=== PATIENT | female | born 1955 | race African-American/Black ===

== ENCOUNTER 2018-03-30 08:48 | Inpatient (IN) | payer MEDICARE, MEDICAID ==
[~2018-03-30] VITALS: Ht 162.6 cm; Wt 50.7 kg
[~2018-03-30 08:48] MED LIST: ALBUAER3 IN; AMLO5TAB2 PO; ASCO500T11 PO; ASPI81CH43 PO; BACL10TA PO; BUDE160A3 INH; CALC-355 PO; CETI10TA93 PO; CHOL50006 PO; COLCPOW2 PO; FLAX100024 PO; IBUP800T24 PO; LEVE500T22 PO; LEVO25TA49 PO; LIDO5DIS21 TOP; LORA-654 PO; MULT1TAB23 PO; NITR0.4D10 TD; OLAN10TA29 PO; OMEG100078 PO; POTA8TAB2 PO; PROP60CA34 PO; SUCR1SUS10 PO; VITA80009 PO; [UNRECOGNIZED DRUG - CODE] VI
[2018-03-30 09:30] LABS: Basophils # (auto) 0.1 uL; Basophils % (auto) 0.7 % (0.0-2.0); Eosinophils # (auto) 0 uL; Eosinophils % (auto) 0.2 % (0.0-7.0); Hematocrit 44.1 % (36.0-46.0); Hemoglobin 14.4 g/dL (12.2-16.2); Lymphocytes % (auto) 22.6 % (10.0-50.0); Mean Corpuscular Hemoglobin 30.7 pg (28.0-32.0); Mean Corpuscular Hgb Conc. 32.7 g/dL (32.0-36.0); Mean Corpuscular Volume 93.8 fL (80.0-100.0); Monocytes # (auto) 0.5 uL; Monocytes % (auto) 5.4 % (0.0-12.0); Neutrophils # (auto) 6.4 uL; Neutrophils % (auto) 71.1 % (37.0-80.0); Platelet Count (auto) 244 10^3/uL (140-450); Red Blood Cells 4.71 10^6/uL (4.0-5.20)
[2018-03-30 09:52] LABS: Albumin 3.6 g/dL (3.4-5.0); BUN/Creatinine Ratio 13.2; Bilirubin, Total 0.4 mg/dL (0.2-1.0); Calcium 8.7 mg/dL (8.5-10.1); Potassium 3.6 mmol/L (3.5-5.1); Total Protein 7.7 g/dL (6.4-8.2)
[2018-03-30] MEDS ORDERED: SODIUM CHLORIDE 0.9% 500 ML IVB ONE (11:49)
[2018-03-30] MEDS ORDERED: PANTOPRAZOLE 40 MG/10 ML VIAL IV STA (11:49)
[2018-03-30] MEDS ORDERED: PROMETHAZINE HCL 25 MG/ML 1ML IV ONE (12:00)
[2018-03-30] MEDS ORDERED: MORPHINE SULFATE 4 MG/ML SYR/VIAL IV ONE (12:00)
[2018-03-30 12:48] LABS: Lipase 201 U/L (73-393); Magnesium 2.1 mg/dL (1.6-2.6)
[2018-03-30] MEDS ORDERED: LORazepam 2MG/ML-1ML VIAL IV PRN (14:45)
[2018-03-30 14:57] LABS: Urine Bacteria NONE SEEN /hpf (None Seen); Urine Blood Negative /uL (Negative); Urine Specific Gravity 1.009 (1.001-1.035); Urine WBC 4 /hpf (0 - 5)
[2018-03-30] MEDS ORDERED: DEXTROSE (50%) 50ML SYRG IV PRN (15:00)
[2018-03-30] MEDS: SODIUM CHLORIDE 0.9% 1,000 ML IV SCH ×2 (15:03→23:23)
[2018-03-30] MEDS ORDERED: DOCUSATE SOD 100 MG CAP PO PRN (15:15)
[2018-03-30] MEDS ORDERED: ACETAMINOPHEN 325 MG TAB PO PRN (15:15)
[2018-03-30] MEDS ORDERED: ONDANSETRON HCL 4 MG/2 ML VIAL IV PRN (15:15)
[2018-03-30] MEDS: metroNIDAZOLE 500MG/100ML 100 ML IV SCH ×2 (15:21→21:58)
[2018-03-30] MEDS ORDERED: LEVOFLOXACIN 500MG 100 ML IV ONE (16:30)
[2018-03-30] MEDS: HYDROcodone-ACET 5/325MG TAB PO PRN ×2 (17:01→21:59)
[2018-03-30] MEDS: MULTIPLE VITAMIN TAB PO SCH (17:01)
[2018-03-30] MEDS: MORPHINE SULF INJ 2 MG/ML SYRINGE 1ML IV PRN ×2 (18:00→23:20)
[2018-03-30] MEDS: InsuLIN REG 1unit/0.01ml Soln (100units/ml) SC SCH ×2 (18:00→22:00)
[2018-03-30] MEDS: ACCU-CHEK COMFORT CURVE STRIP VI SCH ×2 (18:00→22:12)
[2018-03-30] MEDS: FAMOTIDINE 20 MG TAB PO SCH (21:58)
[2018-03-30] MEDS: LEVETIRACETAM 500 MG TAB PO SCH (21:59)
[2018-03-30] MEDS: OLANZapine 5 MG TAB PO SCH (21:59)
[2018-03-30 22:01] VITALS: BP 141/81
[2018-03-30] MEDS: PROPRANOLOL HCL 20 MG TAB PO SCH (22:09)
[2018-03-30] MEDS: BACLOFEN 10 MG TAB PO PRN (22:11)
[2018-03-31] MEDS: LORazepam 0.5 MG TAB PO PRN ×2 (00:22→11:40)
[2018-03-31] MEDS: TEMAZEPAM 15 MG CAP PO PRN ×2 (00:22→22:47)
[2018-03-31 04:38] VITALS: BP 111/63
[2018-03-31] MEDS: metroNIDAZOLE 500MG/100ML 100 ML IV SCH ×3 (06:33→21:45)
[2018-03-31] MEDS: LEVOTHYROXINE SODIUM 25 MCG TAB PO SCH (06:33)
[2018-03-31] MEDS: ACCU-CHEK COMFORT CURVE STRIP VI SCH ×4 (06:33→21:50)
[2018-03-31] MEDS: InsuLIN REG 1unit/0.01ml Soln (100units/ml) SC SCH ×4 (07:00→21:50)
[2018-03-31] MEDS: SODIUM CHLORIDE 0.9% 1,000 ML IV SCH (07:43)
[2018-03-31 08:47] LABS: Basophils # (auto) 0.1 uL; Basophils % (auto) 0.8 % (0.0-2.0); Eosinophils # (auto) 0 uL; Eosinophils % (auto) 0.4 % (0.0-7.0); Hematocrit 40.2 % (36.0-46.0); Hemoglobin 13.3 g/dL (12.2-16.2); Lymphocytes # (auto) 3.5 uL; Lymphocytes % (auto) 49.9 % (10.0-50.0); Mean Corpuscular Hemoglobin 31.1 pg (28.0-32.0); Mean Corpuscular Hgb Conc. 33.2 g/dL (32.0-36.0); Mean Corpuscular Volume 93.4 fL (80.0-100.0); Monocytes # (auto) 0.7 uL; Monocytes % (auto) 9.7 % (0.0-12.0); Neutrophils # (auto) 2.7 uL; Neutrophils % (auto) 39.2 % (37.0-80.0); Nucleated Red Blood Cells % 0.2 %; Platelet Count (auto) 197 10^3/uL (140-450); Red Cell Distribution Width 12.9 % (11.8-14.3); White Blood Cell 6.9 10^3/uL (4.4-10.8)
[2018-03-31] MEDS: LEVOFLOXACIN 500MG 100 ML IV SCH (08:55)
[2018-03-31] MEDS: COLCHICINE 0.6 MG TAB PO SCH (08:56)
[2018-03-31] MEDS: LORATADINE 10 MG TAB PO SCH (08:57)
[2018-03-31] MEDS: FAMOTIDINE 20 MG TAB PO SCH (08:57)
[2018-03-31] MEDS: MULTIPLE VITAMIN TAB PO SCH (08:57)
[2018-03-31] MEDS: amLODIPine BESYLATE 5 MG TAB PO SCH (08:57)
[2018-03-31 09:00] VITALS: BP 147/76
[2018-03-31] MEDS: MORPHINE SULF INJ 2 MG/ML SYRINGE 1ML IV PRN ×3 (09:03→19:55)
[2018-03-31] MEDS: PROPRANOLOL HCL 20 MG TAB PO SCH ×2 (09:10→21:45)
[2018-03-31 09:17] LABS: Albumin 3.1 g/dL (3.4-5.0); BUN/Creatinine Ratio 10.6; Bilirubin, Total 0.4 mg/dL (0.2-1.0); Calcium 8.2 mg/dL (8.5-10.1); Potassium 3.3 mmol/L (3.5-5.1); Total Protein 6.5 g/dL (6.4-8.2)
[2018-03-31] MEDS ORDERED: FLAXSEED OIL 1000 MG PO SCH (10:00)
[2018-03-31] MEDS ORDERED: ASCORBIC ACID 500 MG TAB PO SCH (10:00)
[2018-03-31] MEDS ORDERED: VITAMIN A PO SCH (10:00)
[2018-03-31] MEDS ORDERED: PANTOPRAZOLE 40 MG/10 ML VIAL IV ONE (11:45)
[2018-03-31] MEDS: SOD CHL 0.45% WITH 20MEQ KCL 1,000 ML IV SCH (12:26)
[2018-03-31 13:00] VITALS: BP 140/76
[2018-03-31] MEDS: LACTULOSE 20Gm/30ML SOLN PO PRN ×2 (15:25→21:48)
[2018-03-31] MEDS: PROMETHAZINE HCL 25 MG/ML 1ML IV PRN ×2 (15:25→21:48)
[2018-03-31] MEDS: BACLOFEN 10 MG TAB PO PRN ×2 (15:25→22:48)
[2018-03-31 15:41] LABS: INR 1.01 (0.9-1.15); Prothrombin Time 10.8 sec (9.27-12.13)
[2018-03-31 17:46] VITALS: BP 154/87
[2018-03-31 20:05] VITALS: BP 161/85
[2018-03-31] MEDS: LEVETIRACETAM 500 MG TAB PO SCH (21:46)
[2018-03-31] MEDS: OLANZapine 5 MG TAB PO SCH (21:47)
[2018-03-31 22:00] VITALS: BP 142/81
[2018-03-31] MEDS ORDERED: PANTOPRAZOLE 40 MG/10 ML VIAL IV SCH (22:00)
[2018-04-01] MEDS: SOD CHL 0.45% WITH 20MEQ KCL 1,000 ML IV SCH ×2 (02:00→14:25)
[2018-04-01] MEDS: MORPHINE SULF INJ 2 MG/ML SYRINGE 1ML IV PRN ×4 (02:00→20:50)
[2018-04-01 05:34] VITALS: BP 143/77
[2018-04-01] MEDS: metroNIDAZOLE 500MG/100ML 100 ML IV SCH ×3 (06:00→22:42)
[2018-04-01 06:49] LABS: INR 1.04 (0.9-1.15); Partial Thromboplastin Time 24.9 sec (23.78-33.04); Prothrombin Time 11.1 sec (9.27-12.13)
[2018-04-01] MEDS: LEVOTHYROXINE SODIUM 25 MCG TAB PO SCH (06:58)
[2018-04-01] MEDS: InsuLIN REG 1unit/0.01ml Soln (100units/ml) SC SCH ×4 (07:00→22:00)
[2018-04-01 07:04] LABS: BUN/Creatinine Ratio 5.5; Calcium 8.1 mg/dL (8.5-10.1)
[2018-04-01] MEDS: ACCU-CHEK COMFORT CURVE STRIP VI SCH ×4 (07:09→22:44)
[2018-04-01 08:00] VITALS: BP 134/79
[2018-04-01] MEDS ORDERED: POTASSIUM CHL 20MEQ/100ML 100 ML IV ONE (08:15)
[2018-04-01 08:44] LABS: Basophils # (auto) 0 uL; Basophils % (auto) 0.6 % (0.0-2.0); Eosinophils # (auto) 0 uL; Eosinophils % (auto) 0.3 % (0.0-7.0); Hematocrit 39.2 % (36.0-46.0); Hemoglobin 13.1 g/dL (12.2-16.2); Lymphocytes # (auto) 3.5 uL; Lymphocytes % (auto) 47.7 % (10.0-50.0); Mean Corpuscular Hemoglobin 30.9 pg (28.0-32.0); Mean Corpuscular Hgb Conc. 33.3 g/dL (32.0-36.0); Mean Corpuscular Volume 92.7 fL (80.0-100.0); Monocytes # (auto) 0.7 uL; Monocytes % (auto) 9.9 % (0.0-12.0); Neutrophils % (auto) 41.5 % (37.0-80.0); Nucleated Red Blood Cells % 0.1 %; Platelet Count (auto) 196 10^3/uL (140-450); Red Blood Cells 4.23 10^6/uL (4.0-5.20); Red Cell Distribution Width 12.9 % (11.8-14.3); White Blood Cell 7.3 10^3/uL (4.4-10.8)
[2018-04-01] MEDS: LEVOFLOXACIN 500MG 100 ML IV SCH (10:00)
[2018-04-01] MEDS ORDERED: PANTOPRAZOLE 40 MG/10 ML VIAL IV SCH (10:00)
[2018-04-01] MEDS ORDERED: diphenhdrAMINE HCL 50 MG/1 ML VL ONE (11:01)
[2018-04-01] MEDS ORDERED: NALOXONE HCL 0.4 MG/ML VIAL ONE (11:01)
[2018-04-01] MEDS ORDERED: FLUMAZENIL 0.1 MG/ML INJ 10ML MDV IV ONE (11:01)
[2018-04-01] MEDS ORDERED: LIDOCAINE VISCOUS 2% 15ML UD ONE (11:01)
[2018-04-01] MEDS ORDERED: SODIUM CHLORIDE LOCK 10 ML ONE (11:01)
[2018-04-01] MEDS: fentaNYL CITRATE 100 MCG/2 ML VL ONE ×2 (11:28→11:31)
[2018-04-01] MEDS: MIDAZOLAM HCL 5 MG/ML-1ML VIAL ONE ×2 (11:28→11:31)
[2018-04-01] MEDS: PANTOPRAZOLE 40 MG TAB PO SCH ×2 (12:56→22:44)
[2018-04-01] MEDS: COLCHICINE 0.6 MG TAB PO SCH (12:56)
[2018-04-01] MEDS: LORATADINE 10 MG TAB PO SCH (12:56)
[2018-04-01] MEDS: PROPRANOLOL HCL 20 MG TAB PO SCH ×2 (12:57→22:00)
[2018-04-01] MEDS: amLODIPine BESYLATE 5 MG TAB PO SCH (12:58)
[2018-04-01] MEDS: MULTIPLE VITAMIN TAB PO SCH (12:58)
[2018-04-01 13:00] VITALS: BP 166/91
[2018-04-01] MEDS: FISH OIL PO SCH (13:30)
[2018-04-01 17:00] VITALS: BP 132/69
[2018-04-01] MEDS: HYDROcodone-ACET 5/325MG TAB PO PRN ×2 (17:13→22:30)
[2018-04-01 21:36] VITALS: BP 144/77
[2018-04-01] MEDS: OLANZapine 5 MG TAB PO SCH (22:00)
[2018-04-01] MEDS: LEVETIRACETAM 500 MG TAB PO SCH (22:43)
[2018-04-01] MEDS: LORazepam 0.5 MG TAB PO PRN (23:03)
[2018-04-01] MEDS: TEMAZEPAM 15 MG CAP PO PRN (23:03)
[2018-04-02] MEDS: MORPHINE SULF INJ 2 MG/ML SYRINGE 1ML IV PRN ×2 (00:55→04:55)
[2018-04-02] MEDS: ALBUTEROL SULF 2.5 MG/0.5ML(0.5%) NEB SOLN NEB PRN ×2 (01:47→09:58)
[2018-04-02 01:54] VITALS: BP 144/77
[2018-04-02] MEDS: HYDROcodone-ACET 5/325MG TAB PO PRN ×2 (02:14→06:09)
[2018-04-02] MEDS: SOD CHL 0.45% WITH 20MEQ KCL 1,000 ML IV SCH (04:32)
[2018-04-02 04:47] VITALS: BP 115/67
[2018-04-02] MEDS: LEVOTHYROXINE SODIUM 25 MCG TAB PO SCH (06:07)
[2018-04-02] MEDS: InsuLIN REG 1unit/0.01ml Soln (100units/ml) SC SCH ×2 (06:07→11:30)
[2018-04-02] MEDS: metroNIDAZOLE 500MG/100ML 100 ML IV SCH (06:07)
[2018-04-02] MEDS: ACCU-CHEK COMFORT CURVE STRIP VI SCH ×2 (06:08→11:50)
[2018-04-02 08:00] VITALS: BP 122/74
[2018-04-02 09:00] VITALS: BP 122/74
[2018-04-02] MEDS: PANTOPRAZOLE 40 MG TAB PO SCH (09:21)
[2018-04-02] MEDS: amLODIPine BESYLATE 5 MG TAB PO SCH (09:21)
[2018-04-02] MEDS: MULTIPLE VITAMIN TAB PO SCH (09:22)
[2018-04-02] MEDS: PROPRANOLOL HCL 20 MG TAB PO SCH (09:23)
[2018-04-02] MEDS: COLCHICINE 0.6 MG TAB PO SCH (09:24)
[2018-04-02] MEDS: LORATADINE 10 MG TAB PO SCH (09:24)
[2018-04-02] MEDS: LEVOFLOXACIN 500MG 100 ML IV SCH (09:24)
[2018-04-02] MEDS: FISH OIL PO SCH (09:24)
[2018-04-02 09:27] LABS: Basophils # (auto) 0.1 uL; Basophils % (auto) 1.3 % (0.0-2.0); Eosinophils # (auto) 0.1 uL; Eosinophils % (auto) 2.6 % (0.0-7.0); Hematocrit 43.1 % (36.0-46.0); Lymphocytes # (auto) 2.7 uL; Lymphocytes % (auto) 48.5 % (10.0-50.0); Mean Corpuscular Hemoglobin 30.2 pg (28.0-32.0); Mean Corpuscular Hgb Conc. 32.5 g/dL (32.0-36.0); Mean Corpuscular Volume 93.1 fL (80.0-100.0); Monocytes # (auto) 0.5 uL; Monocytes % (auto) 9.6 % (0.0-12.0); Neutrophils # (auto) 2.1 uL; Nucleated Red Blood Cells % 0.1 %; Platelet Count (auto) 218 10^3/uL (140-450); Red Blood Cells 4.63 10^6/uL (4.0-5.20); Red Cell Distribution Width 12.8 % (11.8-14.3); White Blood Cell 5.5 10^3/uL (4.4-10.8)
[2018-04-02 09:40] LABS: Calcium 8.1 mg/dL (8.5-10.1); Potassium 3.5 mmol/L (3.5-5.1)
== END 2018-04-02 12:04 | disposition home or self-care (01) | DRG 392 ==
LOC: EDBD 08:48 → ER 08:48 → TELE 08:49 → TELE-CENTR 18:00 → CENTRAL 03-31 05:01
PROVIDERS: ADMIT Internal Medicine; ATTEND Internal Medicine
PROC: 0DB68ZX Excision of Stomach, Via Natural or Artificial Opening Endoscopic, Diagnostic (ICD-10-PCS; principal; 2018-04-01 11:24)
DX: K29.00 Acute gastritis without bleeding (principal); I50.42 Chronic combined systolic (congestive) and diastolic (congestive) heart failure; I13.0 Hypertensive heart and chronic kidney disease with heart failure and stage 1 through stage 4 chronic kidney disease, or unspecified chronic kidney disease; N18.2 Chronic kidney disease, stage 2 (mild); K52.9 Noninfective gastroenteritis and colitis, unspecified; E86.0 Dehydration; E11.65 Type 2 diabetes mellitus with hyperglycemia; Z88.0 Allergy status to penicillin; Z88.8 Allergy status to other drugs, medicaments and biological substances; E06.3 Autoimmune thyroiditis; E11.21 Type 2 diabetes mellitus with diabetic nephropathy; E11.22 Type 2 diabetes mellitus with diabetic chronic kidney disease; E11.40 Type 2 diabetes mellitus with diabetic neuropathy, unspecified; F32.9 Major depressive disorder, single episode, unspecified; F41.9 Anxiety disorder, unspecified; G40.909 Epilepsy, unspecified, not intractable, without status epilepticus; G89.4 Chronic pain syndrome; I25.10 Atherosclerotic heart disease of native coronary artery without angina pectoris; K44.9 Diaphragmatic hernia without obstruction or gangrene; K57.30 Diverticulosis of large intestine without perforation or abscess without bleeding; K76.89 Other specified diseases of liver; K90.0 Celiac disease; M06.9 Rheumatoid arthritis, unspecified; M32.9 Systemic lupus erythematosus, unspecified; M35.00 Sjogren syndrome, unspecified; M79.7 Fibromyalgia; Z82.49 Family history of ischemic heart disease and other diseases of the circulatory system; Z83.3 Family history of diabetes mellitus; Z86.73 Personal history of transient ischemic attack (TIA), and cerebral infarction without residual deficits; Z90.710 Acquired absence of both cervix and uterus; Z98.51 Tubal ligation status; Z79.82 Long term (current) use of aspirin; Z79.899 Other long term (current) drug therapy
CPT/HCPCS: 36415; 43239; 71045; 72192; 74176; 80048; 80053; 81001; 82962; 83036; 83690; 83735; 84443; 84484; 85025; 85610; 85730; 86850; 86900; 86901; 87081; 87086; 93005; 94640; 96361; 96374; 96375; A6257; C9113; J1956; J2250; J2405; J3480; J3490

== ENCOUNTER 2018-04-03 14:11 | Emergency (ER) | payer MEDICARE, MEDICAID ==
[~2018-04-03] VITALS: Ht 162.6 cm; Wt 65.8 kg
[2018-04-03] MEDS ORDERED: SODIUM CHLORIDE 0.9% 1,000 ML IV ONE ×2 (14:27)
[2018-04-03] MEDS ORDERED: PANTOPRAZOLE 40 MG/10 ML VIAL IV ONE (14:30)
[2018-04-03] MEDS ORDERED: PROMETHAZINE HCL 25 MG/ML 1ML IV ONE (14:30)
[2018-04-03 15:40] LABS: Basophils # (auto) 0.1 uL; Eosinophils # (auto) 0 uL; Eosinophils % (auto) 0.1 % (0.0-7.0); Hematocrit 43.6 % (36.0-46.0); Hemoglobin 14.8 g/dL (12.2-16.2); Lymphocytes # (auto) 1.6 uL; Lymphocytes % (auto) 20.6 % (10.0-50.0); Mean Corpuscular Hemoglobin 31.3 pg (28.0-32.0); Mean Corpuscular Volume 92.2 fL (80.0-100.0); Monocytes # (auto) 0.4 uL; Neutrophils # (auto) 5.8 uL; Neutrophils % (auto) 73.3 % (37.0-80.0); Platelet Count (auto) 201 10^3/uL (140-450); Red Blood Cells 4.73 10^6/uL (4.0-5.20); Red Cell Distribution Width 12.9 % (11.8-14.3); White Blood Cell 7.9 10^3/uL (4.4-10.8)
[2018-04-03 16:00] LABS: Albumin 3.6 g/dL (3.4-5.0); BUN/Creatinine Ratio 18.4; Bilirubin, Total 0.3 mg/dL (0.2-1.0); Calcium 8.7 mg/dL (8.5-10.1); Potassium 4.9 mmol/L (3.5-5.1); Total Protein 8.1 g/dL (6.4-8.2)
[2018-04-03] MEDS ORDERED: BACLOFEN 10 MG TAB PO ONE (19:15)
[2018-04-03 21:27] VITALS: BP 176/63
[2018-04-03] MEDS ORDERED: ONDANSETRON HCL 4 MG/2 ML VIAL IV ONE (21:45)
[2018-04-03] MEDS ORDERED: KETOROLAC TROMETH 30 MG/ML 1ML VIAL IV ONE (21:45)
== END 2018-04-03 17:11 | disposition home or self-care (01) ==
LOC: ER 14:11 → EDBD 14:11 → ER 17:11
DX: R53.1 Weakness (principal); M32.9 Systemic lupus erythematosus, unspecified; R11.2 Nausea with vomiting, unspecified; I11.0 Hypertensive heart disease with heart failure; I50.9 Heart failure, unspecified; E11.9 Type 2 diabetes mellitus without complications; E07.9 Disorder of thyroid, unspecified; Z90.710 Acquired absence of both cervix and uterus; Z88.0 Allergy status to penicillin; Z88.8 Allergy status to other drugs, medicaments and biological substances; Z88.1 Allergy status to other antibiotic agents; Z91.040 Latex allergy status; Z86.73 Personal history of transient ischemic attack (TIA), and cerebral infarction without residual deficits
CPT/HCPCS: 36415; 80053; 82962; 85025; 93005; 96361; 96374; 96375; 99285; C9113; J1885; J2405; J2550; J7030

== ENCOUNTER 2018-04-30 15:12 | Emergency (ER) | payer MEDICARE, MEDICAID ==
[~2018-04-30] VITALS: Ht 167.6 cm; Wt 68.0 kg
[~2018-04-30 15:12] MED LIST changes: +AMLO5TAB13 PO; -AMLO5TAB2 PO
[2018-04-30 16:03] LABS: Basophils # (auto) 0.1 uL; Eosinophils # (auto) 0 uL; Eosinophils % (auto) 0.7 % (0.0-7.0); Hematocrit 39.7 % (36.0-46.0); Hemoglobin 13.1 g/dL (12.2-16.2); Lymphocytes # (auto) 2.8 uL; Lymphocytes % (auto) 45.7 % (10.0-50.0); Mean Corpuscular Hemoglobin 31.1 pg (28.0-32.0); Mean Corpuscular Volume 94.2 fL (80.0-100.0); Monocytes # (auto) 0.5 uL; Monocytes % (auto) 8.7 % (0.0-12.0); Neutrophils # (auto) 2.6 uL; Neutrophils % (auto) 43.9 % (37.0-80.0); Nucleated Red Blood Cells % 0.2 %; Platelet Count (auto) 193 10^3/uL (140-450); Red Blood Cells 4.21 10^6/uL (4.0-5.20); Red Cell Distribution Width 12.9 % (11.8-14.3)
[2018-04-30 16:19] LABS: Alanine Aminotransferase 19 U/L (13-56); Anion Gap 10 (5-15); Aspartate Aminotransferase 15 U/L (15-37); BUN/Creatinine Ratio 10.1; Blood Urea Nitrogen 10 mg/dL (7-18); Carbon Dioxide 28 mmol/L (21-32); Chloride 106 mmol/L (98-107); GFR African American 73 mL/min; GFR Non-African American 60 mL/min; Glucose 85 mg/dL (74-106); Potassium 3.5 mmol/L (3.5-5.1); Sodium 144 mmol/L (136-145)
[2018-04-30 16:20] LABS: Albumin 3.5 g/dL (3.4-5.0); Calcium 8.5 mg/dL (8.5-10.1)
[2018-04-30 16:24] LABS: Alkaline Phosphatase 106 U/L (45-117); Bilirubin, Total 0.3 mg/dL (0.2-1.0); Total Protein 7.5 g/dL (6.4-8.2)
[2018-04-30] MEDS ORDERED: D5W/SOD CHL 0.45% 1,000 ML IV ONE (21:15)
[2018-04-30 21:30] LABS: Urine Bacteria FEW /hpf (None Seen); Urine Blood Negative /uL (Negative); Urine Specific Gravity 1.012 (1.001-1.035); Urine WBC 1 /hpf (0 - 5)
[2018-04-30] MEDS ORDERED: IOHEXOL 300 MG/ML 100ML BOTTLE IJ ONE (21:33)
[2018-05-01 07:03] VITALS: BP 198/98
== END 2018-05-01 07:44 | disposition home or self-care (01) ==
LOC: ER 15:12 → EDBD 15:12 → ER 05-01 07:44
DX: R53.1 Weakness (principal); E11.649 Type 2 diabetes mellitus with hypoglycemia without coma; E07.9 Disorder of thyroid, unspecified; I11.0 Hypertensive heart disease with heart failure; I50.9 Heart failure, unspecified; Z88.0 Allergy status to penicillin; Z88.1 Allergy status to other antibiotic agents; Z88.2 Allergy status to sulfonamides; Z88.8 Allergy status to other drugs, medicaments and biological substances; Z79.82 Long term (current) use of aspirin; Z79.899 Other long term (current) drug therapy; Z86.73 Personal history of transient ischemic attack (TIA), and cerebral infarction without residual deficits; Z90.710 Acquired absence of both cervix and uterus
CPT/HCPCS: 36415; 74176; 80053; 81001; 84484; 85025; 93005; 96365; 96366

== ENCOUNTER 2018-05-07 20:52 | Emergency (ER) | payer MEDICARE, MEDICAID ==
[~2018-05-07] VITALS: Ht 167.6 cm; Wt 63.5 kg
[2018-05-08] MEDS ORDERED: LORazepam 0.5 MG TAB PO ONE (07:30)
[2018-05-08] MEDS ORDERED: LORazepam 2MG/ML-1ML VIAL ONE (08:00)
[2018-05-08] MEDS ORDERED: LORazepam 2MG/ML-1ML VIAL IM ONE (08:15)
[2018-05-08 08:35] VITALS: BP 155/65
== END 2018-05-08 09:19 | disposition home or self-care (01) ==
LOC: EDBD 20:52 → ER 21:04
DX: F20.9 Schizophrenia, unspecified (principal); F41.9 Anxiety disorder, unspecified; I11.0 Hypertensive heart disease with heart failure; I50.9 Heart failure, unspecified; E11.9 Type 2 diabetes mellitus without complications
CPT/HCPCS: 96372; 99284; J2060

== ENCOUNTER 2021-06-07 13:20 | Emergency (ER) | payer MEDICARE, MEDICAID ==
[~2021-06-07] VITALS: Ht 167.6 cm; Wt 74.8 kg
[~2021-06-07 13:20] MED LIST changes: +AMLO-489 PO; -AMLO5TAB13 PO; -IBUP800T24 PO; +IBUP800T27 PO; -LEVE500T22 PO; +LEVE500T32 PO; -LORA-654 PO; +LORA0.5T20 PO; -NITR0.4D10 TD; +NITR0.4D5 TD; -OLAN10TA29 PO; +OLAN1TAB19 PO
[2021-06-07] MEDS ORDERED: SODIUM CHLORIDE 0.9% 1,000 ML IV ONE (14:45)
[2021-06-07] MEDS ORDERED: ACETAMINOPHEN 325 MG TAB PO ONE (14:45)
[2021-06-07] MEDS ORDERED: KETOROLAC TROMETH 30 MG/ML 1ML VIAL IV ONE ×2 (14:45→20:00)
[2021-06-07 15:46] LABS: Basophils # (auto) 0 10 ^3/uL (0-0.2); Basophils % (auto) 0.9 % (0.0-2.0); Eosinophils # (auto) 0.1 10 ^3/uL (0-0.8); Eosinophils % (auto) 1.4 % (0.0-7.0); Hematocrit 41.8 % (36.0-46.0); Hemoglobin 13.9 g/dL (12.2-16.2); Lymphocytes # (auto) 2.1 10 ^3/uL (0.4-5.4); Lymphocytes % (auto) 45.5 % (10.0-50.0); Mean Corpuscular Hemoglobin 31.5 pg (28.0-32.0); Mean Corpuscular Hgb Conc. 33.3 g/dL (32.0-36.0); Mean Corpuscular Volume 94.7 fL (80.0-100.0); Monocytes # (auto) 0.4 10 ^3/uL (0-1.3); Monocytes % (auto) 8.8 % (0.0-12.0); Neutrophils % (auto) 43.4 % (37.0-80.0); Nucleated Red Blood Cells % 0.1 %; Red Blood Cells 4.42 10^6/uL (4.0-5.20); Red Cell Distribution Width 12.8 % (11.8-14.3); White Blood Cell 4.7 10^3/uL (4.4-10.8)
[2021-06-07 16:16] LABS: Calcium 8.9 mg/dL (8.5-10.1); Magnesium 2.7 mg/dL (1.6-2.6); Potassium 3.8 mmol/L (3.5-5.1)
[2021-06-07 16:22] LABS: BUN/Creatinine Ratio 16.5; Bilirubin, Total 0.2 mg/dL (0.2-1.0)
[2021-06-07 19:27] LABS: Urine Bacteria FEW /hpf (None Seen); Urine Blood Negative /uL (Negative); Urine Specific Gravity 1.007 (1.001-1.035); Urine WBC 1 /hpf (0 - 5)
[2021-06-07 19:45] VITALS: BP 155/83
== END 2021-06-07 20:15 | disposition home or self-care (01) ==
LOC: EDBD 13:20 → ER 13:20
DX: M79.10 Myalgia, unspecified site (principal); I11.0 Hypertensive heart disease with heart failure; I50.9 Heart failure, unspecified; E11.9 Type 2 diabetes mellitus without complications; Z79.82 Long term (current) use of aspirin; Z79.1 Long term (current) use of non-steroidal anti-inflammatories (NSAID); Z79.899 Other long term (current) drug therapy; Z88.0 Allergy status to penicillin; Z88.1 Allergy status to other antibiotic agents; Z88.2 Allergy status to sulfonamides; Z88.8 Allergy status to other drugs, medicaments and biological substances; Z91.040 Latex allergy status; Z20.822 Contact with and (suspected) exposure to COVID-19
CPT/HCPCS: 36415; 71045; 74176; 80053; 81001; 83605; 83690; 83735; 83880; 84484; 85025; 87426; 87804; 93005; 96360; 96361

== ENCOUNTER 2021-06-14 17:50 | Inpatient (IN) | payer MEDICARE, MEDICAID ==
[~2021-06-14] VITALS: Ht 167.6 cm; Wt 58.9 kg
[2021-06-14 23:56] LABS: Basophils # (auto) 0 10 ^3/uL (0-0.2); Basophils % (auto) 0.8 % (0.0-2.0); Eosinophils # (auto) 0.1 10 ^3/uL (0-0.8); Eosinophils % (auto) 2.4 % (0.0-7.0); Hematocrit 41.4 % (36.0-46.0); Hemoglobin 13.6 g/dL (12.2-16.2); Lymphocytes # (auto) 2.7 10 ^3/uL (0.4-5.4); Mean Corpuscular Hemoglobin 30.9 pg (28.0-32.0); Mean Corpuscular Hgb Conc. 32.8 g/dL (32.0-36.0); Mean Corpuscular Volume 94.4 fL (80.0-100.0); Monocytes # (auto) 0.6 10 ^3/uL (0-1.3); Monocytes % (auto) 11.6 % (0.0-12.0); Neutrophils # (auto) 1.4 10 ^3/uL (1.6-8.6); Neutrophils % (auto) 29.7 % (37.0-80.0); Red Blood Cells 4.39 10^6/uL (4.0-5.20); White Blood Cell 4.8 10^3/uL (4.4-10.8)
[2021-06-15 00:18] LABS: Albumin 3.3 g/dL (3.4-5.0); BUN/Creatinine Ratio 18.2; Calcium 9.2 mg/dL (8.5-10.1); Magnesium 2.2 mg/dL (1.6-2.6); Potassium 3.4 mmol/L (3.5-5.1)
[2021-06-15 00:23] LABS: Bilirubin, Total 0.4 mg/dL (0.2-1.0); Total Protein 7.6 g/dL (6.4-8.2)
[2021-06-15 00:42] LABS: Lymphocytes % (auto) 55.5 % (10.0-50.0)
[2021-06-15] MEDS ORDERED: SODIUM CHLORIDE 0.9% 1,000 ML IV ONE (00:45)
[2021-06-15] MEDS ORDERED: ACETAMINOPHEN 500 MG TAB PO ONE (02:30)
[2021-06-15 02:58] LABS: Lactic Acid w/Reflex 2.5 mmol/L (0.4-2.0)
[2021-06-15] MEDS ORDERED: POTASSIUM CHL 20MEQ/100ML 100 ML IV STA (06:32)
[2021-06-15] MEDS ORDERED: IOHEXOL 300 MG/ML 100ML BOTTLE IJ ONE (06:35)
[2021-06-15] MEDS ORDERED: MORPHINE SULFATE INJECTION 2 MG/ML SYRG IV ONE (06:45)
[2021-06-15] MEDS ORDERED: ONDANSETRON HCL 4 MG/2 ML VIAL IV ONE (06:45)
[2021-06-15] MEDS ORDERED: MORPHINE SULFATE INJECTION 2 MG/ML SYRG IV PRN (10:00)
[2021-06-15] MEDS ORDERED: LORazepam 0.5 MG TAB PO PRN (10:15)
[2021-06-15] MEDS ORDERED: DEXTROSE (50%) 50ML SYRG IV PRN (10:15)
[2021-06-15] MEDS ORDERED: LACTULOSE 20Gm/30ML SOLN PO PRN (10:15)
[2021-06-15] MEDS ORDERED: PROMETHAZINE HCL 25 MG/ML 1ML IV PRN (10:15)
[2021-06-15] MEDS ORDERED: ACETAMINOPHEN 500 MG TAB PO PRN (10:15)
[2021-06-15] MEDS ORDERED: LORazepam 2MG/ML-1ML VIAL IV PRN (10:15)
[2021-06-15] MEDS: InsuLIN REG 1unit/0.01ml Soln (100units/ml) SC SCH ×3 (11:30→22:37)
[2021-06-15] MEDS: ACCU-CHEK COMFORT CURVE STRIP VI SCH ×3 (11:57→22:39)
[2021-06-15] MEDS: SODIUM CHLORIDE 0.9% 1,000 ML IV SCH ×2 (12:11→22:24)
[2021-06-15 12:31] LABS: Urine Bacteria NONE SEEN /hpf (None Seen); Urine Blood Negative /uL (Negative); Urine Specific Gravity 1.015 (1.001-1.035); Urine WBC 1 /hpf (0 - 5)
[2021-06-15 12:55] LABS: Alcohol, Urine < 3.0 mg/dL (0-10); Amphetamine Screen, Urine NEGATIVE (NEGATIVE); Barbiturate Scree,Urine NEGATIVE (NEGATIVE); Benzodiazephine Screen, Urine NEGATIVE (NEGATIVE); Cannabinoid Screen, Urine NEGATIVE (NEGATIVE); Cocaine Screen, Urine NEGATIVE (NEGATIVE); Opiate Scree,Urine POSITIVE (NEGATIVE); Phencyclidine Screen, Urine NEGATIVE (NEGATIVE)
[2021-06-15 14:56] LABS: CRP High Sensitivity 0.26 mg/dL (< 0.3)
[2021-06-15 15:46] LABS: Lactic Acid w/Reflex 3.5 mmol/L (0.4-2.0)
[2021-06-15] MEDS: SUCRALFATE 1 GM/10 ML ORAL SUSP PO SCH ×2 (17:16→22:49)
[2021-06-15] MEDS: HYDROmorphone HCL 2 MG/ML VL IV PRN (18:54)
[2021-06-15] MEDS: HYDROcodone-ACET 5/325MG TAB PO PRN (21:10)
[2021-06-15] MEDS: PANTOPRAZOLE 40 MG/10 ML VIAL INJ IV SCH (22:30)
[2021-06-15 23:00] VITALS: BP 141/80
[2021-06-15 23:24] VITALS: BP 141/80
[2021-06-16] MEDS: HYDROmorphone HCL 2 MG/ML VL IV PRN ×2 (00:36→08:45)
[2021-06-16] MEDS: HYDROcodone-ACET 5/325MG TAB PO PRN ×2 (03:31→13:37)
[2021-06-16 05:00] VITALS: BP 131/83
[2021-06-16 06:13] LABS: Basophils # (auto) 0 10 ^3/uL (0-0.2); Eosinophils # (auto) 0.1 10 ^3/uL (0-0.8); Eosinophils % (auto) 2.9 % (0.0-7.0); Hematocrit 37.9 % (36.0-46.0); Hemoglobin 12.9 g/dL (12.2-16.2); Lymphocytes # (auto) 2.2 10 ^3/uL (0.4-5.4); Lymphocytes % (auto) 48.1 % (10.0-50.0); Mean Corpuscular Hgb Conc. 33.9 g/dL (32.0-36.0); Mean Corpuscular Volume 94.5 fL (80.0-100.0); Monocytes # (auto) 0.5 10 ^3/uL (0-1.3); Monocytes % (auto) 11.7 % (0.0-12.0); Neutrophils # (auto) 1.7 10 ^3/uL (1.6-8.6); Neutrophils % (auto) 36.3 % (37.0-80.0); Red Blood Cells 4.01 10^6/uL (4.0-5.20); Red Cell Distribution Width 13.1 % (11.8-14.3); White Blood Cell 4.6 10^3/uL (4.4-10.8)
[2021-06-16] MEDS: SODIUM CHLORIDE 0.9% 1,000 ML IV SCH ×3 (06:15→22:16)
[2021-06-16] MEDS: ACCU-CHEK COMFORT CURVE STRIP VI SCH ×4 (06:29→22:15)
[2021-06-16] MEDS: InsuLIN REG 1unit/0.01ml Soln (100units/ml) SC SCH ×4 (06:29→22:00)
[2021-06-16] MEDS: SUCRALFATE 1 GM/10 ML ORAL SUSP PO SCH ×4 (06:35→22:15)
[2021-06-16 07:03] LABS: Potassium 3.7 mmol/L (3.5-5.1)
[2021-06-16 07:30] LABS: Albumin 2.5 g/dL (3.4-5.0); BUN/Creatinine Ratio 11.9; Bilirubin, Total 0.3 mg/dL (0.2-1.0); Calcium 8.4 mg/dL (8.5-10.1); Total Protein 6.4 g/dL (6.4-8.2)
[2021-06-16 08:35] VITALS: BP 157/87
[2021-06-16] MEDS: ASPirin 81 mg TAB PO SCH (08:43)
[2021-06-16] MEDS: ENOXAPARIN SOD 40 MG/0.4 ML SYRINGE SC SCH (08:43)
[2021-06-16] MEDS: PANTOPRAZOLE 40 MG/10 ML VIAL INJ IV SCH ×2 (08:43→22:15)
[2021-06-16 12:30] VITALS: BP 157/80
[2021-06-16] MEDS ORDERED: LACTULOSE 20Gm/30ML SOLN PO PRN (15:00)
[2021-06-16] MEDS ORDERED: BISACODYL 5 MG EC TAB PO ONE (15:00)
[2021-06-16 16:51] VITALS: BP 153/68
[2021-06-17 05:00] VITALS: BP 144/88
[2021-06-17] MEDS: ACCU-CHEK COMFORT CURVE STRIP VI SCH ×2 (06:44→11:30)
[2021-06-17] MEDS: InsuLIN REG 1unit/0.01ml Soln (100units/ml) SC SCH ×2 (06:45→11:30)
[2021-06-17] MEDS: SUCRALFATE 1 GM/10 ML ORAL SUSP PO SCH ×2 (07:09→11:41)
[2021-06-17 09:00] VITALS: BP 155/87
[2021-06-17 09:05] LABS: Cholesterol 213 mg/dL (< 200); HDL Cholesterol 56 mg/dL (40-59); LDL Cholesterol 135 mg/dL (< 100); Triglycerides 82 mg/dL (< 150)
[2021-06-17] MEDS ORDERED: hydrALAZINE HCL 20 MG/ML VL IV PRN (09:15)
[2021-06-17] MEDS: ASPirin 81 mg TAB PO SCH (11:41)
[2021-06-17] MEDS: PANTOPRAZOLE 40 MG/10 ML VIAL INJ IV SCH (11:41)
[2021-06-17] MEDS: ENOXAPARIN SOD 40 MG/0.4 ML SYRINGE SC SCH (11:41)
[2021-06-17 12:47] VITALS: BP 155/87
[2021-06-17 13:00] VITALS: BP 162/83
== END 2021-06-17 16:50 | disposition home or self-care (01) | DRG 392 ==
LOC: EDBD 17:50 → ER 17:50 → TELE 06-15 09:46 → TELE-CENTR 06-15 22:25 → TELE-WESTW 06-16 05:54 → TELE-CENTR 06-17 00:22
PROVIDERS: ADMIT Internal Medicine; ATTEND Family Medicine
DX: K29.70 Gastritis, unspecified, without bleeding (principal); M35.2 Behcet's disease; F11.20 Opioid dependence, uncomplicated; R44.3 Hallucinations, unspecified; E87.6 Hypokalemia; E11.21 Type 2 diabetes mellitus with diabetic nephropathy; E11.40 Type 2 diabetes mellitus with diabetic neuropathy, unspecified; G89.4 Chronic pain syndrome; I11.0 Hypertensive heart disease with heart failure; I50.9 Heart failure, unspecified; K42.9 Umbilical hernia without obstruction or gangrene; Z20.822 Contact with and (suspected) exposure to COVID-19; K44.9 Diaphragmatic hernia without obstruction or gangrene; K57.90 Diverticulosis of intestine, part unspecified, without perforation or abscess without bleeding; K90.0 Celiac disease; E03.9 Hypothyroidism, unspecified; M79.7 Fibromyalgia; Z79.82 Long term (current) use of aspirin; Z79.899 Other long term (current) drug therapy; Z86.73 Personal history of transient ischemic attack (TIA), and cerebral infarction without residual deficits; Z82.49 Family history of ischemic heart disease and other diseases of the circulatory system; Z83.3 Family history of diabetes mellitus; Z87.11 Personal history of peptic ulcer disease; Z90.710 Acquired absence of both cervix and uterus; Z88.1 Allergy status to other antibiotic agents; Z88.0 Allergy status to penicillin; Z91.040 Latex allergy status
CPT/HCPCS: 36415; 70450; 71045; 74176; 80053; 80061; 80307; 81001; 82150; 82550; 82962; 83036; 83605; 83690; 83735; 84443; 84484; 85025; 85652; 86141; 87040; 87426; 93971; 96361; 96374; 97163; C9113; G0378; J1815; J2405; J3480

== ENCOUNTER 2021-06-18 13:22 | Inpatient (IN) | payer MEDICARE, MEDICAID ==
[~2021-06-18] VITALS: Ht 157.5 cm; Wt 63.5 kg
[2021-06-18 21:33] LABS: Basophils # (auto) 0.1 10 ^3/uL (0-0.2); Basophils % (auto) 0.5 % (0.0-2.0); Eosinophils # (auto) 0 10 ^3/uL (0-0.8); Eosinophils % (auto) 0.1 % (0.0-7.0); Hematocrit 44.9 % (36.0-46.0); Hemoglobin 14.9 g/dL (12.2-16.2); Lymphocytes # (auto) 2.5 10 ^3/uL (0.4-5.4); Lymphocytes % (auto) 23.7 % (10.0-50.0); Mean Corpuscular Hemoglobin 31.1 pg (28.0-32.0); Mean Corpuscular Hgb Conc. 33.1 g/dL (32.0-36.0); Mean Corpuscular Volume 93.8 fL (80.0-100.0); Monocytes # (auto) 1.2 10 ^3/uL (0-1.3); Monocytes % (auto) 11.6 % (0.0-12.0); Neutrophils # (auto) 6.7 10 ^3/uL (1.6-8.6); Neutrophils % (auto) 64.1 % (37.0-80.0); Nucleated Red Blood Cells % 0.1 %; Red Blood Cells 4.78 10^6/uL (4.0-5.20); Red Cell Distribution Width 13.3 % (11.8-14.3); White Blood Cell 10.4 10^3/uL (4.4-10.8)
[2021-06-18 21:55] LABS: Albumin 3.6 g/dL (3.4-5.0); Anion Gap 11 (5-15); Blood Alcohol < 3.0 mg/dL (0-5); Blood Urea Nitrogen 19 mg/dL (7-18); Calcium 9.5 mg/dL (8.5-10.1); Carbon Dioxide 25 mmol/L (21-32); Chloride 106 mmol/L (98-107); Glucose 103 mg/dL (74-106); Magnesium 3.2 mg/dL (1.6-2.6); Sodium 142 mmol/L (136-145)
[2021-06-18 22:01] LABS: Alanine Aminotransferase 39 U/L (13-56); Alkaline Phosphatase 115 U/L (45-117); Aspartate Aminotransferase 69 U/L (15-37); BUN/Creatinine Ratio 19.2; Bilirubin, Total 0.7 mg/dL (0.2-1.0); GFR African American 72 mL/min; GFR Non-African American 59 mL/min; Total Protein 8.3 g/dL (6.4-8.2)
[2021-06-18 22:13] LABS: Potassium 2.9 mmol/L (3.5-5.1)
[2021-06-18] MEDS ORDERED: POTASSIUM CHL 20MEQ/100ML 100 ML IV STA (22:21)
[2021-06-18] MEDS ORDERED: POTASSIUM EFFERVESENT TAB 25 MEQ PO ONE (22:30)
[2021-06-18] MEDS ORDERED: ASPirin 325 MG TAB PO ONE (22:30)
[2021-06-19] MEDS ORDERED: SOD CHL 0.9%/ KCL 20MEQ 1,000 ML IV ONE (00:40)
[2021-06-19] MEDS ORDERED: POTASSIUM CHL 20MEQ/100ML 100 ML IV ONE (01:00)
[2021-06-19] MEDS ORDERED: LABETALOL HCL 5 MG/ML 4ML SYRINGE IV ONE (02:15)
[2021-06-19] MEDS ORDERED: LORazepam 2MG/ML-1ML VIAL IM ONE (04:30)
[2021-06-19] MEDS ORDERED: ONDANSETRON HCL 4 MG/2 ML VIAL IV PRN (05:45)
[2021-06-19] MEDS ORDERED: DEXTROSE (50%) 50ML SYRG IV PRN (05:45)
[2021-06-19] MEDS ORDERED: POTASSIUM EFFERVESENT TAB 25 MEQ PO ONE ×2 (06:15→12:45)
[2021-06-19 06:46] LABS: Alcohol, Urine < 3.0 mg/dL (0-10); Amphetamine Screen, Urine NEGATIVE (NEGATIVE); Barbiturate Scree,Urine NEGATIVE (NEGATIVE); Benzodiazephine Screen, Urine NEGATIVE (NEGATIVE); Cannabinoid Screen, Urine NEGATIVE (NEGATIVE); Cocaine Screen, Urine NEGATIVE (NEGATIVE); Opiate Scree,Urine NEGATIVE (NEGATIVE); Phencyclidine Screen, Urine NEGATIVE (NEGATIVE)
[2021-06-19] MEDS ORDERED: LEVOTHYROXINE SODIUM 25 MCG TAB PO SCH (07:00)
[2021-06-19] MEDS: InsuLIN REG 1unit/0.01ml Soln (100units/ml) SC SCH ×4 (07:00→22:00)
[2021-06-19] MEDS: ACCU-CHEK COMFORT CURVE STRIP VI SCH ×4 (07:00→23:49)
[2021-06-19 07:27] LABS: Urine Bacteria NONE SEEN /hpf (None Seen); Urine Blood Negative /uL (Negative); Urine Specific Gravity 1.011 (1.001-1.035); Urine WBC <1 /hpf (0 - 5)
[2021-06-19] MEDS: PROPRANOLOL HCL 20 MG TAB PO SCH ×2 (10:00→23:48)
[2021-06-19] MEDS: ASPirin 81 mg TAB PO SCH (10:00)
[2021-06-19] MEDS: amLODIPine BESYLATE 5 MG TAB PO SCH (10:00)
[2021-06-19] MEDS: PANTOPRAZOLE 40 MG TAB PO SCH (10:00)
[2021-06-19] MEDS: LORazepam 0.5 MG TAB PO PRN (10:32)
[2021-06-19] MEDS ORDERED: ENOXAPARIN SOD 40 MG/0.4 ML SYRINGE SC ONE (12:00)
[2021-06-19] MEDS ORDERED: AMIODARONE HCL 200 MG TAB PO ONE (12:00)
[2021-06-19] MEDS ORDERED: POTASSIUM CHLORIDE 40 MEQ, LIDOCAINE 1% (LOCAL ANESTH.) 4 ML in SODIUM CHL 0.9% 250 ML IV ONE (12:00)
[2021-06-19] MEDS ORDERED: HALOPERIDOL LACTATE 5 MG/ML INJ VIAL IM PRN (20:00)
[2021-06-19] MEDS ORDERED: LORazepam 2MG/ML-1ML VIAL IV PRN (20:00)
[2021-06-19] MEDS ORDERED: levETIRAcetam 500 MG TAB PO SCH (22:00)
[2021-06-19] MEDS: AMIODARONE HCL 200 MG TAB PO SCH (23:47)
[2021-06-19] MEDS: ATORVASTATIN 20 MG TAB PO SCH (23:48)
[2021-06-20] MEDS: InsuLIN REG 1unit/0.01ml Soln (100units/ml) SC SCH ×4 (06:17→22:00)
[2021-06-20] MEDS: ACCU-CHEK COMFORT CURVE STRIP VI SCH ×4 (06:47→22:19)
[2021-06-20 08:27] LABS: Basophils # (auto) 0 10 ^3/uL (0-0.2); Basophils % (auto) 0.4 % (0.0-2.0); Eosinophils # (auto) 0 10 ^3/uL (0-0.8); Eosinophils % (auto) 0.2 % (0.0-7.0); Hematocrit 36.4 % (36.0-46.0); Hemoglobin 11.9 g/dL (12.2-16.2); Lymphocytes # (auto) 1.9 10 ^3/uL (0.4-5.4); Lymphocytes % (auto) 22.8 % (10.0-50.0); Mean Corpuscular Hemoglobin 31.4 pg (28.0-32.0); Mean Corpuscular Hgb Conc. 32.6 g/dL (32.0-36.0); Mean Corpuscular Volume 96.3 fL (80.0-100.0); Monocytes # (auto) 0.8 10 ^3/uL (0-1.3); Monocytes % (auto) 10.1 % (0.0-12.0); Neutrophils # (auto) 5.5 10 ^3/uL (1.6-8.6); Neutrophils % (auto) 66.5 % (37.0-80.0); Nucleated Red Blood Cells % 0.1 %; Red Blood Cells 3.78 10^6/uL (4.0-5.20); Red Cell Distribution Width 13.4 % (11.8-14.3); White Blood Cell 8.2 10^3/uL (4.4-10.8)
[2021-06-20 08:43] LABS: Albumin 2.4 g/dL (3.4-5.0); Calcium 7.2 mg/dL (8.5-10.1); Potassium 3.1 mmol/L (3.5-5.1)
[2021-06-20 08:48] LABS: BUN/Creatinine Ratio 47.6; Bilirubin, Total 0.5 mg/dL (0.2-1.0); Total Protein 5.5 g/dL (6.4-8.2)
[2021-06-20] MEDS ORDERED: POTASSIUM EFFERVESENT TAB 25 MEQ PO ONE (09:30)
[2021-06-20] MEDS: ASPirin 81 mg TAB PO SCH (09:47)
[2021-06-20] MEDS: ENOXAPARIN SOD 40 MG/0.4 ML SYRINGE SC SCH (09:47)
[2021-06-20] MEDS: AMIODARONE HCL 200 MG TAB PO SCH ×2 (09:47→22:18)
[2021-06-20] MEDS: amLODIPine BESYLATE 5 MG TAB PO SCH (09:47)
[2021-06-20] MEDS: PANTOPRAZOLE 40 MG TAB PO SCH (09:47)
[2021-06-20] MEDS: PROPRANOLOL HCL 20 MG TAB PO SCH ×2 (09:47→22:19)
[2021-06-20] MEDS ORDERED: POTASSIUM EFFERVESENT TAB 25 MEQ GT ONE (16:15)
[2021-06-20] MEDS: ATORVASTATIN 20 MG TAB PO SCH (22:19)
[2021-06-20] MEDS: ACETAMINOPHEN 325 MG TAB PO PRN (22:20)
[2021-06-21] MEDS: InsuLIN REG 1unit/0.01ml Soln (100units/ml) SC SCH ×4 (06:58→22:00)
[2021-06-21] MEDS: ACCU-CHEK COMFORT CURVE STRIP VI SCH ×4 (06:59→22:00)
[2021-06-21] MEDS: ENOXAPARIN SOD 40 MG/0.4 ML SYRINGE SC SCH (10:07)
[2021-06-21] MEDS: AMIODARONE HCL 200 MG TAB PO SCH ×2 (10:07→22:00)
[2021-06-21] MEDS: ASPirin 81 mg TAB PO SCH (10:07)
[2021-06-21] MEDS: amLODIPine BESYLATE 5 MG TAB PO SCH (10:07)
[2021-06-21] MEDS: PROPRANOLOL HCL 20 MG TAB PO SCH ×2 (10:07→22:00)
[2021-06-21] MEDS: PANTOPRAZOLE 40 MG TAB PO SCH (10:07)
[2021-06-21] MEDS: ATORVASTATIN 20 MG TAB PO SCH (22:00)
[2021-06-22] MEDS: ACETAMINOPHEN 325 MG TAB PO PRN (01:56)
[2021-06-22] MEDS: LORazepam 0.5 MG TAB PO PRN (01:56)
[2021-06-22] MEDS: ACCU-CHEK COMFORT CURVE STRIP VI SCH ×2 (06:35→11:30)
[2021-06-22] MEDS: InsuLIN REG 1unit/0.01ml Soln (100units/ml) SC SCH ×2 (07:13→11:30)
[2021-06-22 09:38] VITALS: BP 103/59
[2021-06-22] MEDS: ASPirin 81 mg TAB PO SCH (09:42)
[2021-06-22] MEDS: amLODIPine BESYLATE 5 MG TAB PO SCH (09:42)
[2021-06-22] MEDS: PROPRANOLOL HCL 20 MG TAB PO SCH (09:42)
[2021-06-22] MEDS: AMIODARONE HCL 200 MG TAB PO SCH (09:42)
[2021-06-22] MEDS: PANTOPRAZOLE 40 MG TAB PO SCH (09:43)
[2021-06-22] MEDS: ENOXAPARIN SOD 40 MG/0.4 ML SYRINGE SC SCH (09:43)
== END 2021-06-22 13:33 | disposition left against medical advice (07) | DRG 101 ==
LOC: EDBD 13:22 → ER 13:22 → OVERFLOW 06-19 05:34
PROVIDERS: ADMIT Nurse Practitioner; ATTEND Family Medicine
PROC: 4A10X4Z Monitoring of Central Nervous Electrical Activity, External Approach (ICD-10-PCS; principal; 2021-06-19)
DX: G40.909 Epilepsy, unspecified, not intractable, without status epilepticus (principal); M35.2 Behcet's disease; F05 Delirium due to known physiological condition; E87.6 Hypokalemia; E11.21 Type 2 diabetes mellitus with diabetic nephropathy; E78.00 Pure hypercholesterolemia, unspecified; E78.5 Hyperlipidemia, unspecified; G89.4 Chronic pain syndrome; I11.0 Hypertensive heart disease with heart failure; I48.91 Unspecified atrial fibrillation; R77.8 Other specified abnormalities of plasma proteins; Z53.29 Procedure and treatment not carried out because of patient's decision for other reasons; Z20.822 Contact with and (suspected) exposure to COVID-19; I50.9 Heart failure, unspecified; M32.9 Systemic lupus erythematosus, unspecified; R44.1 Visual hallucinations; G20 Parkinson's disease; E03.9 Hypothyroidism, unspecified; M35.9 Systemic involvement of connective tissue, unspecified; M35.00 Sjogren syndrome, unspecified; Z79.82 Long term (current) use of aspirin; Z79.899 Other long term (current) drug therapy; Z83.3 Family history of diabetes mellitus; Z86.73 Personal history of transient ischemic attack (TIA), and cerebral infarction without residual deficits; Z87.11 Personal history of peptic ulcer disease; Z90.710 Acquired absence of both cervix and uterus; Z88.0 Allergy status to penicillin; Z88.2 Allergy status to sulfonamides; Z88.8 Allergy status to other drugs, medicaments and biological substances; Z88.1 Allergy status to other antibiotic agents; Z91.040 Latex allergy status
CPT/HCPCS: 36415; 70450; 70551; 71045; 80053; 80307; 80320; 81001; 82140; 82962; 83735; 84443; 84484; 85025; 87426; 93005; 93306; 95819; 96365; 96366; 96372; 96375; G0378; J1815; J2001; J2405; J3480; J3490

== ENCOUNTER 2021-08-20 18:15 | Emergency (ER) | payer MEDICARE, MEDICAID ==
[~2021-08-20] VITALS: Ht 167.6 cm; Wt 63.5 kg
[~2021-08-20 18:15] MED LIST changes: -ASPI81CH43 PO; -IBUP800T27 PO; -LEVE500T32 PO; -LIDO5DIS21 TOP; -LORA0.5T20 PO; -OLAN1TAB19 PO; -PROP60CA34 PO
[2021-08-20 19:27] VITALS: BP 134/68
[2021-08-20 20:45] LABS: Urine Bacteria FEW /hpf (None Seen); Urine Blood Negative /uL (Negative); Urine Specific Gravity 1.017 (1.001-1.035); Urine WBC 61 /hpf (0 - 5)
[2021-08-20] MEDS ORDERED: LEVO500T31 PO (21:25)
== END 2021-08-21 00:22 | disposition home or self-care (01) ==
LOC: EDBD 18:15 → ER 18:19
DX: K42.9 Umbilical hernia without obstruction or gangrene (principal); N39.0 Urinary tract infection, site not specified; R94.31 Abnormal electrocardiogram [ECG] [EKG]
CPT/HCPCS: 74176; 81001; 82962; 93005

== ENCOUNTER 2021-09-25 16:18 | Inpatient (IN) | payer MEDICARE, MEDICAID ==
[~2021-09-25] VITALS: Ht 167.6 cm; Wt 68.5 kg
[~2021-09-25 16:18] MED LIST changes: +LEVO500T31 PO
[2021-09-25] MEDS ORDERED: HYDROmorphone HCL 2 MG/ML VL IM ONE (21:30)
[2021-09-25] MEDS ORDERED: ALBUTEROL SULF 2.5 MG/0.5ML(0.5%) NEB SOLN NEB PRN (22:00)
[2021-09-25] MEDS ORDERED: MORPHINE SULFATE INJECTION 2 MG/ML SYRG IV PRN (22:00)
[2021-09-25] MEDS: ATORVASTATIN 20 MG TAB PO SCH (22:00)
[2021-09-25] MEDS: ACCU-CHEK COMFORT CURVE STRIP VI SCH (22:00)
[2021-09-25] MEDS: APIXABAN 2.5 MG TAB PO SCH (22:00)
[2021-09-25] MEDS: AMIODARONE HCL 200 MG TAB PO SCH (22:00)
[2021-09-25] MEDS: InsuLIN REG 1unit/0.01ml Soln (100units/ml) SC SCH (22:00)
[2021-09-25] MEDS: PROPRANOLOL HCL 20 MG TAB PO SCH (22:00)
[2021-09-25] MEDS ORDERED: DEXTROSE (50%) 50ML SYRG IV PRN (22:00)
[2021-09-25] MEDS ORDERED: ACETAMINOPHEN 325 MG TAB PO PRN (22:00)
[2021-09-25] MEDS ORDERED: NITROGLYCERIN 0.4 MG SL TAB SL PRN (22:00)
[2021-09-25 22:39] LABS: Basophils # (auto) 0.1 10 ^3/uL (0-0.2); Basophils % (auto) 1.3 % (0.0-2.0); Eosinophils # (auto) 0.1 10 ^3/uL (0-0.8); Eosinophils % (auto) 0.7 % (0.0-7.0); Hematocrit 39.9 % (36.0-46.0); Hemoglobin 13.3 g/dL (12.2-16.2); Lymphocytes # (auto) 4.1 10 ^3/uL (0.4-5.4); Lymphocytes % (auto) 49.4 % (10.0-50.0); Mean Corpuscular Hemoglobin 31.6 pg (28.0-32.0); Mean Corpuscular Hgb Conc. 33.2 g/dL (32.0-36.0); Monocytes # (auto) 0.7 10 ^3/uL (0-1.3); Monocytes % (auto) 8.1 % (0.0-12.0); Neutrophils # (auto) 3.4 10 ^3/uL (1.6-8.6); Neutrophils % (auto) 40.5 % (37.0-80.0); Nucleated Red Blood Cells % 0.3 %; Red Cell Distribution Width 14.3 % (11.8-14.3); White Blood Cell 8.3 10^3/uL (4.4-10.8)
[2021-09-25 22:44] LABS: Albumin 3.7 g/dL (3.4-5.0); Calcium 9.1 mg/dL (8.5-10.1); Potassium 3.4 mmol/L (3.5-5.1)
[2021-09-25 22:50] LABS: BUN/Creatinine Ratio 11.8; Bilirubin, Total 0.2 mg/dL (0.2-1.0); Total Protein 7.8 g/dL (6.4-8.2)
[2021-09-26] VITALS (7 sets, daily range): BP systolic 123–166; BP diastolic 71–86
[2021-09-26 00:42] LABS: Urine Bacteria FEW /hpf (None Seen); Urine Blood Negative /uL (Negative); Urine Mucus FEW (None Seen); Urine Specific Gravity 1.015 (1.001-1.035); Urine WBC 14 /hpf (0 - 5)
[2021-09-26 06:40] LABS: Basophils # (auto) 0.1 10 ^3/uL (0-0.2); Eosinophils # (auto) 0 10 ^3/uL (0-0.8); Eosinophils % (auto) 0.8 % (0.0-7.0); Hematocrit 40.4 % (36.0-46.0); Hemoglobin 13.2 g/dL (12.2-16.2); Lymphocytes # (auto) 2.1 10 ^3/uL (0.4-5.4); Lymphocytes % (auto) 36.9 % (10.0-50.0); Mean Corpuscular Hemoglobin 31.1 pg (28.0-32.0); Mean Corpuscular Hgb Conc. 32.8 g/dL (32.0-36.0); Monocytes # (auto) 0.6 10 ^3/uL (0-1.3); Monocytes % (auto) 10.3 % (0.0-12.0); Neutrophils # (auto) 2.9 10 ^3/uL (1.6-8.6); Nucleated Red Blood Cells % 0.1 %; Red Blood Cells 4.25 10^6/uL (4.0-5.20); Red Cell Distribution Width 14.4 % (11.8-14.3); White Blood Cell 5.7 10^3/uL (4.4-10.8)
[2021-09-26 06:50] LABS: BUN/Creatinine Ratio 9.7; Potassium 3.1 mmol/L (3.5-5.1)
[2021-09-26] MEDS: InsuLIN REG 1unit/0.01ml Soln (100units/ml) SC SCH ×4 (06:59→22:00)
[2021-09-26] MEDS: LEVOTHYROXINE SODIUM 50 MCG TAB PO SCH (07:00)
[2021-09-26] MEDS: ACCU-CHEK COMFORT CURVE STRIP VI SCH ×4 (07:00→22:14)
[2021-09-26] MEDS: FUROSEMIDE 20 MG TAB PO SCH ×2 (07:01→17:37)
[2021-09-26] MEDS ORDERED: cefTRIAXone 1GM/50ML D5W 50 ML IV SCH (09:00)
[2021-09-26] MEDS ORDERED: ADENOSINE 53 MG in GIVE UN-DILUTED 0 ML IV STA (09:12)
[2021-09-26] MEDS: AMIODARONE HCL 200 MG TAB PO SCH ×2 (10:10→22:12)
[2021-09-26] MEDS: APIXABAN 2.5 MG TAB PO SCH ×2 (10:14→22:12)
[2021-09-26] MEDS: POTASSIUM CHLORIDE 8 MEQ TAB PO SCH (10:15)
[2021-09-26] MEDS: amLODIPine BESYLATE 5 MG TAB PO SCH (10:15)
[2021-09-26] MEDS: PROPRANOLOL HCL 20 MG TAB PO SCH ×2 (10:16→22:13)
[2021-09-26] MEDS: METHOCARBAMOL 500 MG TAB PO SCH ×3 (12:42→22:14)
[2021-09-26] MEDS: ATORVASTATIN 20 MG TAB PO SCH (22:13)
[2021-09-26] MEDS: ONDANSETRON HCL 4 MG/2 ML VIAL IV PRN (22:15)
[2021-09-26] MEDS: MORPHINE SULFATE INJECTION 2 MG/ML SYRG IV PRN (22:16)
[2021-09-27 05:00] VITALS: BP 127/58
[2021-09-27] MEDS: FUROSEMIDE 20 MG TAB PO SCH ×2 (05:48→17:25)
[2021-09-27] MEDS: InsuLIN REG 1unit/0.01ml Soln (100units/ml) SC SCH (05:52)
[2021-09-27] MEDS: ACCU-CHEK COMFORT CURVE STRIP VI SCH (05:53)
[2021-09-27] MEDS: METHOCARBAMOL 500 MG TAB PO SCH ×4 (06:03→22:06)
[2021-09-27] MEDS: LEVOTHYROXINE SODIUM 50 MCG TAB PO SCH (06:03)
[2021-09-27] MEDS: MORPHINE SULFATE INJECTION 2 MG/ML SYRG IV PRN ×2 (06:04→10:35)
[2021-09-27] MEDS: ONDANSETRON HCL 4 MG/2 ML VIAL IV PRN ×2 (06:05→18:07)
[2021-09-27 09:00] VITALS: BP 137/73
[2021-09-27] MEDS: APIXABAN 2.5 MG TAB PO SCH ×2 (09:32→22:05)
[2021-09-27] MEDS: PROPRANOLOL HCL 20 MG TAB PO SCH ×2 (09:33→22:06)
[2021-09-27] MEDS: amLODIPine BESYLATE 5 MG TAB PO SCH (09:34)
[2021-09-27] MEDS: POTASSIUM CHLORIDE 8 MEQ TAB PO SCH (09:34)
[2021-09-27] MEDS: AMIODARONE HCL 200 MG TAB PO SCH ×2 (10:00→22:00)
[2021-09-27] MEDS ORDERED: HYDROmorphone HCL 2 MG/ML VL IV PRN (11:30)
[2021-09-27] MEDS ORDERED: MESA800T2 PO (11:59)
[2021-09-27] MEDS ORDERED: CALC-355 PO (12:27)
[2021-09-27] MEDS ORDERED: COLC0.6T56 PO (12:27)
[2021-09-27] MEDS ORDERED: BACL20TA PO (12:27)
[2021-09-27] MEDS ORDERED: ASCO500T11 PO (12:27)
[2021-09-27] MEDS ORDERED: NALO1TAB PO (12:27)
[2021-09-27] MEDS ORDERED: PANT40T PO (12:27)
[2021-09-27] MEDS ORDERED: TRAZ100T3 PO (12:27)
[2021-09-27] MEDS ORDERED: APRE30TA PO (12:27)
[2021-09-27] MEDS ORDERED: POTA8TAB2 PO (12:27)
[2021-09-27] MEDS ORDERED: APIX2.5T PO (12:27)
[2021-09-27] MEDS ORDERED: ALBUAER3 IN (12:27)
[2021-09-27] MEDS ORDERED: AMIO200T4 PO (12:27)
[2021-09-27] MEDS ORDERED: HYDR8TAB PO (12:27)
[2021-09-27] MEDS ORDERED: PROP40TA59 PO (12:27)
[2021-09-27] MEDS ORDERED: SUCR1TAB PO (12:27)
[2021-09-27] MEDS ORDERED: MULT1TAB23 PO (12:27)
[2021-09-27] MEDS ORDERED: LEVO50TA7 PO (12:27)
[2021-09-27] MEDS ORDERED: [UNRECOGNIZED DRUG - CODE] TD (12:27)
[2021-09-27] MEDS ORDERED: FUR20T PO (12:27)
[2021-09-27] MEDS ORDERED: CLON0.1T PO (12:27)
[2021-09-27] MEDS ORDERED: BUDE1AER4 IN (12:31)
[2021-09-27 12:48] LABS: INR 1.1 (0.9-1.15)
[2021-09-27 13:08] VITALS: BP 150/78
[2021-09-27 16:49] VITALS: BP 151/60
[2021-09-27 22:00] VITALS: BP 144/84
[2021-09-27] MEDS: ATORVASTATIN 20 MG TAB PO SCH (22:06)
[2021-09-28] VITALS (11 sets, daily range): BP systolic 117–168; BP diastolic 60–110
[2021-09-28] MEDS: FUROSEMIDE 20 MG TAB PO SCH ×2 (05:50→18:07)
[2021-09-28] MEDS: METHOCARBAMOL 500 MG TAB PO SCH ×4 (05:51→21:52)
[2021-09-28] MEDS: LEVOTHYROXINE SODIUM 50 MCG TAB PO SCH (05:51)
[2021-09-28] MEDS: POTASSIUM CHLORIDE 8 MEQ TAB PO SCH (08:48)
[2021-09-28] MEDS: APIXABAN 2.5 MG TAB PO SCH ×2 (10:00→21:52)
[2021-09-28] MEDS ORDERED: POTASSIUM CHL 10MEQ/50ML 50 ML IV SCH (10:30)
[2021-09-28] MEDS ORDERED: SODIUM CHL 0.9% 50 ML ONE ×2 (10:55→11:50)
[2021-09-28] MEDS ORDERED: NITROGLYCERIN 5MG/ML 10ML VIAL IV ONE (10:55)
[2021-09-28] MEDS ORDERED: IODIXANOL 320MG/ML 100ML BTL IV ONE ×2 (10:56→12:08)
[2021-09-28] MEDS: amLODIPine BESYLATE 5 MG TAB PO SCH (10:56)
[2021-09-28] MEDS ORDERED: LIDOCAINE 2%HCL (LOCAL ANESTH.) INJ 20ML MDV ONE (10:56)
[2021-09-28] MEDS: PROPRANOLOL HCL 20 MG TAB PO SCH ×2 (10:56→21:52)
[2021-09-28] MEDS: AMIODARONE HCL 200 MG TAB PO SCH ×2 (10:57→22:00)
[2021-09-28] MEDS ORDERED: ANGIOMAX 250 MG VIAL IV ONE (11:49)
[2021-09-28] MEDS ORDERED: VERAPAMIL 2.5MG/ML INJ 2ML VIAL IV ONE (11:49)
[2021-09-28] MEDS ORDERED: HEPARIN SODIUM (PORCINE) 5000 UNITS/ML 1ML VIAL ONE (11:49)
[2021-09-28] MEDS ORDERED: MIDAZOLAM HCL 2MG/2ML 2ml VIAL (1mg/ml) ONE (11:50)
[2021-09-28] MEDS ORDERED: fentaNYL CITRATE 100 MCG/2 ML VL ONE (11:50)
[2021-09-28] MEDS ORDERED: diphenhdrAMINE HCL 50 MG/1 ML VL ONE (12:19)
[2021-09-28] MEDS: HYDROmorphone HCL 2 MG/ML VL IV PRN ×2 (12:59→21:53)
[2021-09-28] MEDS ORDERED: POTASSIUM CHL 20 Meq TABLET PO ONE (13:00)
[2021-09-28] MEDS: ATORVASTATIN 20 MG TAB PO SCH (21:52)
[2021-09-28] MEDS ORDERED: diphenhdrAMINE HCL 25 MG CAP PO ONE (22:15)
[2021-09-29 05:00] VITALS: BP 115/67
[2021-09-29] MEDS: LEVOTHYROXINE SODIUM 50 MCG TAB PO SCH (06:05)
[2021-09-29] MEDS: FUROSEMIDE 20 MG TAB PO SCH (06:05)
[2021-09-29] MEDS: METHOCARBAMOL 500 MG TAB PO SCH ×2 (06:05→13:21)
[2021-09-29] MEDS: HYDROmorphone HCL 2 MG/ML VL IV PRN (06:15)
[2021-09-29] MEDS: PROPRANOLOL HCL 20 MG TAB PO SCH (07:53)
[2021-09-29] MEDS: AMIODARONE HCL 200 MG TAB PO SCH (07:53)
[2021-09-29 09:00] VITALS: BP 111/65
[2021-09-29] MEDS: POTASSIUM CHLORIDE 8 MEQ TAB PO SCH (09:42)
[2021-09-29] MEDS: APIXABAN 2.5 MG TAB PO SCH (09:42)
[2021-09-29] MEDS: amLODIPine BESYLATE 5 MG TAB PO SCH (09:43)
[2021-09-29 12:35] VITALS: BP 133/52
[2021-09-29] MEDS ORDERED: ONDANSETRON ODT 4 MG TAB PO ONE (13:00)
[2021-09-29 17:30] VITALS: BP 131/83
== END 2021-09-29 16:30 | disposition home or self-care (01) | DRG 286 ==
LOC: EDBD 16:18 → ER 16:18 → TELE 21:51 → TELE-WESTW 23:53
PROVIDERS: ADMIT Nurse Practitioner; ATTEND Family Medicine
PROC: B211YZZ Fluoroscopy of Multiple Coronary Arteries using Other Contrast (ICD-10-PCS; principal; 2021-09-28)
PROC: 4A023N7 Measurement of Cardiac Sampling and Pressure, Left Heart, Percutaneous Approach (ICD-10-PCS; 2021-09-28)
DX: I25.110 Atherosclerotic heart disease of native coronary artery with unstable angina pectoris (principal); I50.23 Acute on chronic systolic (congestive) heart failure; N39.0 Urinary tract infection, site not specified; J44.1 Chronic obstructive pulmonary disease with (acute) exacerbation; I13.0 Hypertensive heart and chronic kidney disease with heart failure and stage 1 through stage 4 chronic kidney disease, or unspecified chronic kidney disease; M32.9 Systemic lupus erythematosus, unspecified; G89.4 Chronic pain syndrome; I48.91 Unspecified atrial fibrillation; N18.9 Chronic kidney disease, unspecified; E11.21 Type 2 diabetes mellitus with diabetic nephropathy; E03.9 Hypothyroidism, unspecified; E11.40 Type 2 diabetes mellitus with diabetic neuropathy, unspecified; Z20.822 Contact with and (suspected) exposure to COVID-19; Z88.0 Allergy status to penicillin; Z88.8 Allergy status to other drugs, medicaments and biological substances; Z76.5 Malingerer [conscious simulation]; Z79.01 Long term (current) use of anticoagulants; Z83.3 Family history of diabetes mellitus; Z87.11 Personal history of peptic ulcer disease; Z88.9 Allergy status to unspecified drugs, medicaments and biological substances
CPT/HCPCS: 36415; 71045; 78452; 80048; 80053; 81001; 82962; 84443; 84484; 85025; 85379; 85610; 87426; 93005; 93017; 93306; 93458; 96365; 99152; G0378; J0153; J1815; J2250; J2405; J3490; Q0162; Q9967

== ENCOUNTER 2021-10-21 17:46 | Inpatient (IN) | payer MEDICARE, MEDICAID ==
[~2021-10-21] VITALS: Ht 165.1 cm; Wt 65.0 kg
[~2021-10-21 17:46] MED LIST changes: +AMIO200T4 PO; +APIX2.5T PO; +APRE30TA PO; -BACL10TA PO; +BACL20TA PO; -BUDE160A3 INH; +BUDE1AER4 IN; -CHOL50006 PO; +CLON0.1T PO; +COLC0.6T56 PO; -COLCPOW2 PO; -FLAX100024 PO; +FUR20T PO; +HYDR8TAB PO; -LEVO25TA49 PO; -LEVO500T31 PO; +LEVO50TA7 PO; +NALO1TAB PO; -NITR0.4D5 TD; +PANT40T PO; +PROP40TA59 PO; -SUCR1SUS10 PO; +SUCR1TAB PO; +TRAZ100T3 PO; +[UNRECOGNIZED DRUG - CODE] TD; -[UNRECOGNIZED DRUG - CODE] VI
[2021-10-21 19:16] LABS: Basophils # (auto) 0.1 10 ^3/uL (0-0.2); Basophils % (auto) 1.5 % (0.0-2.0); Eosinophils # (auto) 0 10 ^3/uL (0-0.8); Eosinophils % (auto) 0.2 % (0.0-7.0); Hematocrit 39.1 % (36.0-46.0); Hemoglobin 13.2 g/dL (12.2-16.2); Lymphocytes # (auto) 2.3 10 ^3/uL (0.4-5.4); Lymphocytes % (auto) 31.9 % (10.0-50.0); Mean Corpuscular Hemoglobin 31.6 pg (28.0-32.0); Mean Corpuscular Hgb Conc. 33.9 g/dL (32.0-36.0); Mean Corpuscular Volume 93.4 fL (80.0-100.0); Monocytes # (auto) 0.4 10 ^3/uL (0-1.3); Monocytes % (auto) 5.6 % (0.0-12.0); Neutrophils # (auto) 4.4 10 ^3/uL (1.6-8.6); Neutrophils % (auto) 60.8 % (37.0-80.0); Red Blood Cells 4.19 10^6/uL (4.0-5.20); White Blood Cell 7.3 10^3/uL (4.4-10.8)
[2021-10-21] MEDS ORDERED: LIDOCAINE 5% TOPICAL PATCH TOP ONE (19:30)
[2021-10-21 19:36] LABS: Albumin 3.3 g/dL (3.4-5.0); Calcium 9.2 mg/dL (8.5-10.1); Potassium 3.8 mmol/L (3.5-5.1)
[2021-10-21 19:43] LABS: Bilirubin, Total 0.2 mg/dL (0.2-1.0); Total Protein 7.3 g/dL (6.4-8.2)
[2021-10-21] MEDS ORDERED: ONDANSETRON HCL 4 MG/2 ML VIAL IV ONE (20:45)
[2021-10-21] MEDS ORDERED: MORPHINE SULFATE 4 MG/ML SYR/VIAL IV ONE (20:45)
[2021-10-22] MEDS ORDERED: HYDROmorphone HCL 2 MG/ML VL IV ONE
[2021-10-22] MEDS ORDERED: ALBUTEROL SULF 2.5 MG/0.5ML(0.5%) NEB SOLN NEB PRN (00:45)
[2021-10-22] MEDS ORDERED: DOCUSATE SOD 100 MG CAP PO PRN (00:45)
[2021-10-22] MEDS ORDERED: ONDANSETRON HCL 4 MG/2 ML VIAL IV PRN (00:45)
[2021-10-22] MEDS ORDERED: ACETAMINOPHEN 325 MG TAB PO PRN (00:45)
[2021-10-22 00:59] VITALS: BP 126/81
[2021-10-22] MEDS ORDERED: NITROGLYCERIN 0.4 MG SL TAB SL PRN (01:00)
[2021-10-22] MEDS ORDERED: guaiFENesin-DM 100/10mg/5ml SYR PO PRN (02:00)
[2021-10-22] MEDS ORDERED: TEMA15CA2 PO (04:44)
[2021-10-22] MEDS ORDERED: NALO1TAB (04:44)
[2021-10-22 05:00] VITALS: BP 147/84
[2021-10-22] MEDS: HYDROcodone-ACET 5/325MG TAB PO PRN ×3 (05:27→20:02)
[2021-10-22] MEDS: LEVOTHYROXINE SODIUM 50 MCG TAB PO SCH (06:17)
[2021-10-22 08:17] VITALS: BP 124/63
[2021-10-22] MEDS ORDERED: FORMOTEROL FUMARATE IN SCH (10:00)
[2021-10-22] MEDS: APREMILAST 30 MG PO SCH (10:00)
[2021-10-22] MEDS ORDERED: FUROSEMIDE 40 MG TAB PO SCH (10:00)
[2021-10-22] MEDS ORDERED: BUDESONIDE IN SCH (10:00)
[2021-10-22] MEDS: APIXABAN 2.5 MG TAB PO SCH ×2 (11:08→22:21)
[2021-10-22] MEDS: AMIODARONE HCL 200 MG TAB PO SCH (11:08)
[2021-10-22] MEDS: amLODIPine BESYLATE 5 MG TAB PO SCH (11:10)
[2021-10-22] MEDS: PANTOPRAZOLE 40 MG TAB PO SCH (11:10)
[2021-10-22] MEDS: PROPRANOLOL HCL 20 MG TAB PO SCH (11:11)
[2021-10-22 12:38] VITALS: BP 133/68
[2021-10-22 17:00] VITALS: BP 138/74
[2021-10-22] MEDS ORDERED: LORazepam 0.5 MG TAB PO PRN (18:30)
[2021-10-22 21:40] VITALS: BP 119/80
[2021-10-22] MEDS: traZODone HCL 50 MG TAB PO SCH (22:20)
[2021-10-23 04:10] VITALS: BP 121/68
[2021-10-23] MEDS: MORPHINE SULFATE 4 MG/ML SYR/VIAL IV PRN ×2 (04:46→13:16)
[2021-10-23 05:43] LABS: Basophils # (auto) 0 10 ^3/uL (0-0.2); Basophils % (auto) 0.5 % (0.0-2.0); Eosinophils # (auto) 0 10 ^3/uL (0-0.8); Eosinophils % (auto) 0.8 % (0.0-7.0); Hematocrit 37.8 % (36.0-46.0); Hemoglobin 12.5 g/dL (12.2-16.2); Lymphocytes # (auto) 2.7 10 ^3/uL (0.4-5.4); Lymphocytes % (auto) 49.2 % (10.0-50.0); Mean Corpuscular Hemoglobin 30.9 pg (28.0-32.0); Mean Corpuscular Hgb Conc. 33.1 g/dL (32.0-36.0); Mean Corpuscular Volume 93.4 fL (80.0-100.0); Monocytes # (auto) 0.5 10 ^3/uL (0-1.3); Monocytes % (auto) 8.7 % (0.0-12.0); Neutrophils # (auto) 2.2 10 ^3/uL (1.6-8.6); Neutrophils % (auto) 40.8 % (37.0-80.0); Nucleated Red Blood Cells % 0.1 %; Red Blood Cells 4.05 10^6/uL (4.0-5.20); Red Cell Distribution Width 14.3 % (11.8-14.3); White Blood Cell 5.4 10^3/uL (4.4-10.8)
[2021-10-23] MEDS: LEVOTHYROXINE SODIUM 50 MCG TAB PO SCH (06:18)
[2021-10-23 06:21] LABS: Potassium 3.2 mmol/L (3.5-5.1)
[2021-10-23 06:30] LABS: Albumin 2.9 g/dL (3.4-5.0); BUN/Creatinine Ratio 13.9; Bilirubin, Total 0.3 mg/dL (0.2-1.0); Total Protein 6.5 g/dL (6.4-8.2)
[2021-10-23 09:00] VITALS: BP 121/69
[2021-10-23] MEDS: PANTOPRAZOLE 40 MG TAB PO SCH (10:00)
[2021-10-23] MEDS: FUROSEMIDE 20 MG TAB PO SCH (10:00)
[2021-10-23] MEDS: PROPRANOLOL HCL 20 MG TAB PO SCH (10:00)
[2021-10-23] MEDS: APIXABAN 2.5 MG TAB PO SCH ×2 (10:00→21:47)
[2021-10-23] MEDS: AMIODARONE HCL 200 MG TAB PO SCH (10:00)
[2021-10-23] MEDS: amLODIPine BESYLATE 5 MG TAB PO SCH (10:00)
[2021-10-23] MEDS: HYDROcodone-ACET 5/325MG TAB PO PRN ×3 (10:09→21:47)
[2021-10-23] MEDS ORDERED: POTASSIUM CHL 20 Meq TABLET PO ONE (14:00)
[2021-10-23] MEDS: Ensure HIGH Protein Chocolate 8oz Bottle PO SCH (18:26)
[2021-10-23] MEDS: traZODone HCL 50 MG TAB PO SCH (21:47)
[2021-10-23 22:00] VITALS: BP 135/91
[2021-10-24 05:00] VITALS: BP 122/74
[2021-10-24] MEDS: HYDROcodone-ACET 5/325MG TAB PO PRN (06:00)
[2021-10-24 06:13] LABS: Hematocrit 38.5 % (36.0-46.0); Mean Corpuscular Hemoglobin 31.7 pg (28.0-32.0); Mean Corpuscular Hgb Conc. 33.7 g/dL (32.0-36.0); Red Blood Cells 4.09 10^6/uL (4.0-5.20); Red Cell Distribution Width 13.9 % (11.8-14.3); White Blood Cell 5.2 10^3/uL (4.4-10.8)
[2021-10-24 06:29] LABS: Basophils % (manual) 0 (0.0-2.0); Blast Cells 0; Metamyelocytes % 0; Myelocytes % 0; Promyelocytes % 0; Reactive Lymphocytes 0
[2021-10-24 06:44] LABS: Albumin 2.8 g/dL (3.4-5.0); BUN/Creatinine Ratio 13.2; Calcium 8.8 mg/dL (8.5-10.1); Potassium 3.7 mmol/L (3.5-5.1)
[2021-10-24 06:47] LABS: Bilirubin, Total 0.3 mg/dL (0.2-1.0); Total Protein 6.6 g/dL (6.4-8.2)
[2021-10-24 06:59] LABS: Band Neutrophils % (manual) 1; Eosinophils % (manual) 2 (0-7); Lymphocytes % (manual) 52 (10.0-50.0); Monocytes % (manual) 8 (0-12)
[2021-10-24] MEDS: Ensure HIGH Protein Chocolate 8oz Bottle PO SCH ×3 (08:00→18:30)
[2021-10-24 09:00] VITALS: BP 111/58
[2021-10-24] MEDS: amLODIPine BESYLATE 5 MG TAB PO SCH (10:00)
[2021-10-24] MEDS: PROPRANOLOL HCL 20 MG TAB PO SCH (10:00)
[2021-10-24] MEDS: PANTOPRAZOLE 40 MG TAB PO SCH (10:13)
[2021-10-24] MEDS: FUROSEMIDE 20 MG TAB PO SCH (10:14)
[2021-10-24] MEDS: APIXABAN 2.5 MG TAB PO SCH ×2 (10:14→22:12)
[2021-10-24] MEDS: AMIODARONE HCL 200 MG TAB PO SCH (10:14)
[2021-10-24] MEDS: LEVOTHYROXINE SODIUM 50 MCG TAB PO SCH (10:18)
[2021-10-24] MEDS: MORPHINE SULFATE 4 MG/ML SYR/VIAL IV PRN ×3 (11:02→20:46)
[2021-10-24] MEDS ORDERED: ARTIFICIAL TEARS 15ml EACHEYE PRN (11:45)
[2021-10-24] MEDS ORDERED: IOHEXOL 350 MG/ML 100ML IJ ONE (12:50)
[2021-10-24 12:55] VITALS: BP 124/68
[2021-10-24] MEDS: LIDOCAINE 5% TOPICAL PATCH TOP SCH (16:53)
[2021-10-24 17:00] VITALS: BP 103/58
[2021-10-24 22:00] VITALS: BP 129/78
[2021-10-24] MEDS: traZODone HCL 50 MG TAB PO SCH (22:12)
[2021-10-25] MEDS: MORPHINE SULFATE 4 MG/ML SYR/VIAL IV PRN ×3 (03:21→22:26)
[2021-10-25 05:00] VITALS: BP 104/61
[2021-10-25 06:37] LABS: Basophils # (auto) 0 10 ^3/uL (0-0.2); Basophils % (auto) 0.7 % (0.0-2.0); Eosinophils # (auto) 0.1 10 ^3/uL (0-0.8); Eosinophils % (auto) 0.9 % (0.0-7.0); Hematocrit 36.3 % (36.0-46.0); Hemoglobin 12.3 g/dL (12.2-16.2); Lymphocytes # (auto) 2.9 10 ^3/uL (0.4-5.4); Lymphocytes % (auto) 50.3 % (10.0-50.0); Mean Corpuscular Hemoglobin 31.5 pg (28.0-32.0); Mean Corpuscular Hgb Conc. 33.8 g/dL (32.0-36.0); Monocytes # (auto) 0.6 10 ^3/uL (0-1.3); Monocytes % (auto) 9.5 % (0.0-12.0); Neutrophils # (auto) 2.2 10 ^3/uL (1.6-8.6); Neutrophils % (auto) 38.6 % (37.0-80.0); Nucleated Red Blood Cells % 0.1 %; Red Cell Distribution Width 14.3 % (11.8-14.3); White Blood Cell 5.8 10^3/uL (4.4-10.8)
[2021-10-25] MEDS: LEVOTHYROXINE SODIUM 50 MCG TAB PO SCH (06:54)
[2021-10-25 06:59] LABS: Potassium 3.6 mmol/L (3.5-5.1)
[2021-10-25 07:06] LABS: Albumin 2.9 g/dL (3.4-5.0); BUN/Creatinine Ratio 18.2; Bilirubin, Total 0.3 mg/dL (0.2-1.0); Calcium 8.8 mg/dL (8.5-10.1); Total Protein 6.4 g/dL (6.4-8.2)
[2021-10-25] MEDS: Ensure HIGH Protein Chocolate 8oz Bottle PO SCH ×3 (08:00→18:15)
[2021-10-25 09:00] VITALS: BP 115/68
[2021-10-25] MEDS: APREMILAST 30 MG PO SCH ×2 (09:04→22:00)
[2021-10-25] MEDS: PROPRANOLOL HCL 20 MG TAB PO SCH (09:12)
[2021-10-25] MEDS: PANTOPRAZOLE 40 MG TAB PO SCH (09:15)
[2021-10-25] MEDS: AMIODARONE HCL 200 MG TAB PO SCH (09:17)
[2021-10-25] MEDS: FUROSEMIDE 20 MG TAB PO SCH (09:18)
[2021-10-25] MEDS: amLODIPine BESYLATE 5 MG TAB PO SCH (09:19)
[2021-10-25] MEDS: APIXABAN 2.5 MG TAB PO SCH ×2 (09:20→22:25)
[2021-10-25] MEDS ORDERED: LIDOCAINE 5% TOPICAL PATCH TOP SCH (10:00)
[2021-10-25] MEDS: LIDOCAINE 5% TOPICAL PATCH TOP SCH (11:54)
[2021-10-25] MEDS ORDERED: NALO1TAB PO (12:05)
[2021-10-25] MEDS ORDERED: OMNIPAQUE ORAL SOLN 500ml 12mg/ml PO ONE (12:27)
[2021-10-25 13:00] VITALS: BP 116/65
[2021-10-25] MEDS ORDERED: IOHEXOL 300 MG/ML 100ML BOTTLE IJ ONE (16:03)
[2021-10-25 17:00] VITALS: BP 127/66
[2021-10-25 21:35] VITALS: BP 100/63
[2021-10-25] MEDS: traZODone HCL 50 MG TAB PO SCH (22:25)
[2021-10-26 04:34] VITALS: BP 121/67
[2021-10-26] MEDS: MORPHINE SULFATE 4 MG/ML SYR/VIAL IV PRN (06:40)
[2021-10-26] MEDS: LEVOTHYROXINE SODIUM 50 MCG TAB PO SCH (07:05)
[2021-10-26 07:32] LABS: Potassium 3.8 mmol/L (3.5-5.1)
[2021-10-26 07:50] LABS: Albumin 2.9 g/dL (3.4-5.0); Bilirubin, Total 0.3 mg/dL (0.2-1.0); Calcium 8.8 mg/dL (8.5-10.1); Total Protein 6.6 g/dL (6.4-8.2)
[2021-10-26 08:00] VITALS: BP 119/61
[2021-10-26] MEDS: Ensure HIGH Protein Chocolate 8oz Bottle PO SCH ×2 (08:00→12:00)
[2021-10-26] MEDS: APREMILAST 30 MG PO SCH (09:54)
[2021-10-26] MEDS: AMIODARONE HCL 200 MG TAB PO SCH (09:54)
[2021-10-26] MEDS: APIXABAN 2.5 MG TAB PO SCH (09:54)
[2021-10-26] MEDS: PROPRANOLOL HCL 20 MG TAB PO SCH (10:00)
[2021-10-26] MEDS: PANTOPRAZOLE 40 MG TAB PO SCH (10:17)
[2021-10-26] MEDS: FUROSEMIDE 20 MG TAB PO SCH (10:17)
[2021-10-26] MEDS: amLODIPine BESYLATE 5 MG TAB PO SCH (10:17)
[2021-10-26] MEDS: LIDOCAINE 5% TOPICAL PATCH TOP SCH (11:21)
[2021-10-26 12:00] VITALS: BP 114/64
[2021-10-26] MEDS: HYDROcodone-ACET 5/325MG TAB PO PRN (13:15)
[2021-10-26 13:26] VITALS: BP 119/81
[2021-10-26 14:01] LABS: Basophils # (auto) 0 10 ^3/uL (0-0.2); Basophils % (auto) 0.7 % (0.0-2.0); Eosinophils # (auto) 0 10 ^3/uL (0-0.8); Eosinophils % (auto) 0.8 % (0.0-7.0); Hematocrit 37.8 % (36.0-46.0); Hemoglobin 12.7 g/dL (12.2-16.2); Lymphocytes # (auto) 2.7 10 ^3/uL (0.4-5.4); Lymphocytes % (auto) 50.3 % (10.0-50.0); Mean Corpuscular Hemoglobin 31.3 pg (28.0-32.0); Mean Corpuscular Hgb Conc. 33.7 g/dL (32.0-36.0); Mean Corpuscular Volume 92.7 fL (80.0-100.0); Monocytes # (auto) 0.6 10 ^3/uL (0-1.3); Monocytes % (auto) 11.2 % (0.0-12.0); Nucleated Red Blood Cells % 0.1 %; Red Blood Cells 4.07 10^6/uL (4.0-5.20); Red Cell Distribution Width 14.4 % (11.8-14.3); White Blood Cell 5.4 10^3/uL (4.4-10.8)
== END 2021-10-26 16:00 | disposition home or self-care (01) | DRG 313 ==
LOC: EDBD 17:46 → EDUNIT# 17:46 → EEVIPCON 17:49 → ER 17:49 → OVERFLOW 10-22 00:41 → WEST WING 10-22 03:17 → TELE-WESTW 10-24 11:52 → WEST WING 10-25 13:20
PROVIDERS: ADMIT Internal Medicine; ATTEND Internal Medicine
DX: R07.89 Other chest pain (principal); I48.20 Chronic atrial fibrillation, unspecified; M79.7 Fibromyalgia; G89.4 Chronic pain syndrome; E87.6 Hypokalemia; I11.0 Hypertensive heart disease with heart failure; I50.9 Heart failure, unspecified; K02.9 Dental caries, unspecified; M16.0 Bilateral primary osteoarthritis of hip; M35.00 Sjogren syndrome, unspecified; M32.9 Systemic lupus erythematosus, unspecified; Z20.822 Contact with and (suspected) exposure to COVID-19; K90.0 Celiac disease; E11.51 Type 2 diabetes mellitus with diabetic peripheral angiopathy without gangrene; G40.909 Epilepsy, unspecified, not intractable, without status epilepticus; Z86.73 Personal history of transient ischemic attack (TIA), and cerebral infarction without residual deficits; Z83.3 Family history of diabetes mellitus; Z82.49 Family history of ischemic heart disease and other diseases of the circulatory system; Z87.01 Personal history of pneumonia (recurrent); Z87.11 Personal history of peptic ulcer disease; Z79.01 Long term (current) use of anticoagulants; Z88.2 Allergy status to sulfonamides; Z88.8 Allergy status to other drugs, medicaments and biological substances; Z88.1 Allergy status to other antibiotic agents; Z91.040 Latex allergy status
CPT/HCPCS: 36415; 71045; 71275; 73502; 74177; 80053; 82962; 83605; 83880; 84484; 85007; 85025; 85027; 93005; 96374; 96375; 97116; 97163; 97530; G0378; J2405